=== PATIENT | female | born 1965 | race African-American/Black ===

== ENCOUNTER 2018-09-20 10:30 | Emergency (ER) | payer MEDICAID ==
[~2018-09-20] VITALS: Ht 162.6 cm; Wt 102.0 kg
[2018-09-20 11:12] VITALS: BP 205/127
== END 2018-09-20 11:18 | disposition home or self-care (01) ==
LOC: ER 10:51
DX: B37.3 Candidiasis of vulva and vagina (principal); I10 Essential (primary) hypertension; E11.9 Type 2 diabetes mellitus without complications; Z79.84 Long term (current) use of oral hypoglycemic drugs; F17.210 Nicotine dependence, cigarettes, uncomplicated
CPT/HCPCS: 99283

== ENCOUNTER 2022-07-18 11:00 | Inpatient (IN) | payer MEDICAID ==
[~2022-07-18] VITALS: Ht 162.6 cm; Wt 65.8 kg
[2022-07-18] MEDS ORDERED: SODIUM CHLORIDE 0.9% 1,000 ML IV ONE ×2 (11:15→13:30)
[2022-07-18 11:51] LABS: HEMATOCRIT. 49.7 % (36.0-48.0); MEAN CORPUSCULAR HEMOGLOBIN 26.3 pg (28.0-32.0); MEAN CORPUSCULAR VOLUME 87.4 fL (81.0-99.0); RED BLOOD CELL COUNT 5.69 mill/uL (4.2-5.4); RED CELL DISTRIBUTION WIDTH 16.5 % (11.6-14.6)
[2022-07-18 12:12] LABS: PLATELET ESTIMATE NORMAL
[2022-07-18 12:14] LABS: PLATELET 128 x1000/uL (130-400)
[2022-07-18 13:02] LABS: BG BASE EXCESS -2.4 mmol/L (-2.0-2.0); BG CARBOXYHEMOGLOBIN 4.2 % (0.5-1.5); BG DEOXYHEMOGLOBIN 6.3 % (0.0-5.0); BG HCO3 ACT 22.1 mmol/L (22.0-26.0); BG METHEMOGLOBIN 0.3 % (0.0-1.5); BG OXYGEN SATURATION 93.4 % (92.0-98.5); BG OXYHEMOGLOBIN 89.2 % (94.0-97.0); BG PCO2 37.4 mmHg (35.0-45.0); BG PH 7.389 (7.350-7.450); BG PO2 63.9 mmHg (75.0-100.0); BG SAMPLE SITE RIGHT BRACHIAL; BG TOTAL HEMOGLOBIN 15.7 g/dL (12.0-18.0); BG VENT MODE ROOM AIR
[2022-07-18 13:21] LABS: CHLORIDE 104 mEq/L (98-107)
[2022-07-18 13:22] LABS: PROTHROMBIN TIME 10.9 sec (9.6-11.0)
[2022-07-18 13:31] LABS: BETA HYDROXYBUTYRATE 3.2 mMol/L (0.0-0.3); ETHANOL BLOOD < 10 mg/dL
[2022-07-18] MEDS ORDERED: SODIUM CHL 0.45% + KCL 20MEQ/L 1,000 ML IV SCH (13:45)
[2022-07-18] MEDS ORDERED: INSULIN REGULAR (DRIP) 100 UNITS in SODIUM CHLORIDE 0.9% 99 ML IV ONE (13:45)
[2022-07-18] MEDS ORDERED: INSULIN REGULAR 100U/100ML PMX 100 ML IV ONE (15:15)
[2022-07-18] MEDS ORDERED: HYDRALAZINE 20MG/ML VIAL IV NR (17:15)
[2022-07-18] MEDS ORDERED: DEXTROSE 50% WATER 50ML SYRINGE IV PRN (18:15)
[2022-07-18] MEDS: BLOOD SUGAR DIAGNOSTIC STRIP TEST SCH ×2 (18:15→21:00)
[2022-07-18] MEDS ORDERED: HYDRALAZINE HCL 50MG TABLET PO NR (18:15)
[2022-07-18] MEDS ORDERED: ONDANSETRON HCL 4MG/2ML INJ IV PRN (18:15)
[2022-07-18] MEDS ORDERED: ACETAMINOPHEN 325MG TABLET PO PRN (18:15)
[2022-07-18] MEDS ORDERED: INSULIN GLARGINE 100 UNITS/ML SUBCUT NR (18:15)
[2022-07-18 20:00] VITALS: BP 155/88
[2022-07-18] MEDS: HYDRALAZINE HCL 50MG TABLET PO SCH (21:00)
[2022-07-18] MEDS: INSULIN LISPRO 100 UNITS/ML SUBCUT SCH ×2 (21:00→22:47)
[2022-07-18] MEDS: INSULIN GLARGINE 100 UNITS/ML SUBCUT SCH (22:00)
[2022-07-19] VITALS: BP 152/84
[2022-07-19 04:00] VITALS: BP 148/91
[2022-07-19] MEDS: BLOOD SUGAR DIAGNOSTIC STRIP TEST SCH ×4 (06:48→21:00)
[2022-07-19] MEDS: INSULIN LISPRO 100 UNITS/ML SUBCUT SCH ×6 (06:50→22:32)
[2022-07-19 08:00] VITALS: BP 146/94
[2022-07-19] MEDS: FUROSEMIDE 40MG/4ML VIAL IVP SCH ×2 (08:17→09:00)
[2022-07-19] MEDS: AMLODIPINE 10MG TABLET PO SCH ×2 (08:18→09:00)
[2022-07-19] MEDS: INSULIN GLARGINE 100 UNITS/ML SUBCUT SCH ×2 (09:32→22:31)
[2022-07-19 10:36] LABS: HEMATOCRIT. 44.3 % (36.0-48.0); HEMOGLOBIN. 14.1 g/dL (12.0-16.0); MEAN CORPUSCULAR HEMOGLOBIN 25.9 pg (28.0-32.0); MEAN CORPUSCULAR VOLUME 81.4 fL (81.0-99.0); MEAN PLATELET VOLUME 10.8 fl (7.4-10.4); PLATELET 160 x1000/uL (130-400); RED BLOOD CELL COUNT 5.44 mill/uL (4.2-5.4); RED CELL DISTRIBUTION WIDTH 15.2 % (11.6-14.6)
[2022-07-19 10:58] LABS: CHLORIDE 111 mEq/L (98-107)
[2022-07-19 11:54] VITALS: BP 148/92
[2022-07-19] MEDS ORDERED: POTASSIUM CHLORIDE 20MEQ TABLET SR PO NR (12:00)
[2022-07-19 12:25] LABS: PLATELET ESTIMATE NORMAL
[2022-07-19 16:00] VITALS: BP 140/90
[2022-07-19] MEDS: PIPERACILLIN/TAZOBACTAM 3.375 G in DEXTROSE 5% WATER 50 ML IV SCH (17:31)
[2022-07-19 20:00] VITALS: BP 140/83
[2022-07-19] MEDS: HYDRALAZINE HCL 50MG TABLET PO SCH (22:30)
[2022-07-20] VITALS: BP 128/66
[2022-07-20] MEDS: PIPERACILLIN/TAZOBACTAM 3.375 G in DEXTROSE 5% WATER 50 ML IV SCH ×4 (01:12→21:04)
[2022-07-20 04:00] VITALS: BP 132/69
[2022-07-20 07:19] LABS: BASOPHILS % 0.4 % (0.0-2.0); EOSINOPHILS % 0.2 % (0.0-5.0); HEMATOCRIT. 41.3 % (36.0-48.0); HEMOGLOBIN. 13.2 g/dL (12.0-16.0); LYMPHOCYTES % 10.3 % (20.0-50.0); MEAN CORPUSCULAR HEMOGLOBIN 26.1 pg (28.0-32.0); MEAN CORPUSCULAR VOLUME 81.9 fL (81.0-99.0); MEAN PLATELET VOLUME 11.6 fl (7.4-10.4); MONOCYTES % 6.9 % (2.0-8.0); NEUTROPHILS % 82.2 % (40.0-76.0); PLATELET 134 x1000/uL (130-400); RED BLOOD CELL COUNT 5.05 mill/uL (4.2-5.4); RED CELL DISTRIBUTION WIDTH 14.9 % (11.6-14.6)
[2022-07-20 07:22] LABS: CHLORIDE 105 mEq/L (98-107)
[2022-07-20] MEDS: BLOOD SUGAR DIAGNOSTIC STRIP TEST SCH ×4 (07:40→21:04)
[2022-07-20 07:49] VITALS: BP 132/78
[2022-07-20] MEDS: AMLODIPINE 10MG TABLET PO SCH (08:10)
[2022-07-20] MEDS: FUROSEMIDE 40MG/4ML VIAL IVP SCH (08:10)
[2022-07-20] MEDS: HYDRALAZINE HCL 50MG TABLET PO SCH ×2 (08:10→21:05)
[2022-07-20] MEDS: INSULIN LISPRO 100 UNITS/ML SUBCUT SCH ×7 (08:12→21:06)
[2022-07-20] MEDS: INSULIN GLARGINE 100 UNITS/ML SUBCUT SCH ×2 (10:03→21:05)
[2022-07-20 12:05] VITALS: BP 117/73
[2022-07-20 15:28] VITALS: BP 113/75
[2022-07-20 19:22] LABS: CLARITY URINE CLOUDY (CLEAR); COLOR URINE DARK YELLOW (YELLOW); KETONES URINE TRACE (NEGATIVE); LEUKOCYTE ESTERASE URINE 2+ (NEGATIVE); NITRITE URINE NEGATIVE (NEGATIVE); OCCULT BLOOD URINE NEGATIVE (NEGATIVE); PROTEIN URINE 2+ (NEGATIVE); SPECIFIC GRAVITY URINE 1.026 (1.005-1.030); UROBILINOGEN URINE >8.0 E.U./dL (0.2-1.0)
[2022-07-20 19:33] LABS: *AMPHETAMINES SCREEN URINE NEGATIVE (NEGATIVE); *BARBITURATES SCREEN URINE NEGATIVE (NEGATIVE); *BENZODIAZEPINES SCREEN URINE NEGATIVE (NEGATIVE); *COCAINE SCREEN URINE PRESUMTIVE POSITIVE (NEGATIVE); CANNABINOID URINE SCREEN PRESUMTIVE POSITIVE (NEGATIVE); METHADONE URINE SCREEN NEGATIVE (NEGATIVE); OPIATES URINE SCREEN NEGATIVE (NEGATIVE); PHENCYCLIDINE URINE SCREEN NEGATIVE (NEGATIVE)
[2022-07-20 20:00] VITALS: BP 122/63
[2022-07-21] VITALS: BP 139/79
[2022-07-21 04:00] VITALS: BP 140/87
[2022-07-21] MEDS: PIPERACILLIN/TAZOBACTAM 3.375 G in DEXTROSE 5% WATER 50 ML IV SCH ×3 (06:40→23:24)
[2022-07-21] MEDS: BLOOD SUGAR DIAGNOSTIC STRIP TEST SCH ×4 (06:40→21:37)
[2022-07-21 07:10] LABS: HEMATOCRIT. 39.2 % (36.0-48.0); HEMOGLOBIN. 12.5 g/dL (12.0-16.0); MEAN CORPUSCULAR HEMOGLOBIN 26.1 pg (28.0-32.0); MEAN CORPUSCULAR VOLUME 81.7 fL (81.0-99.0); MEAN PLATELET VOLUME 10.9 fl (7.4-10.4); PLATELET 127 x1000/uL (130-400); RED CELL DISTRIBUTION WIDTH 15.1 % (11.6-14.6)
[2022-07-21 07:42] LABS: CHLORIDE 105 mEq/L (98-107)
[2022-07-21 08:00] VITALS: BP 144/81
[2022-07-21] MEDS: FUROSEMIDE 40MG/4ML VIAL IVP SCH (08:42)
[2022-07-21] MEDS: HYDRALAZINE HCL 50MG TABLET PO SCH ×2 (08:42→20:38)
[2022-07-21] MEDS: AMLODIPINE 10MG TABLET PO SCH (08:43)
[2022-07-21] MEDS: INSULIN LISPRO 100 UNITS/ML SUBCUT SCH ×7 (08:46→21:31)
[2022-07-21] MEDS: INSULIN GLARGINE 100 UNITS/ML SUBCUT SCH ×2 (10:34→21:32)
[2022-07-21 12:00] VITALS: BP 138/79
[2022-07-21 13:45] LABS: PLATELET ESTIMATE SLIGHTLY DECREASED
[2022-07-21] MEDS ORDERED: HYDR-4135 PO (14:26)
[2022-07-21] MEDS ORDERED: AMLO10TA80 PO (14:26)
[2022-07-21] MEDS ORDERED: INSU100I24 SQ (14:26)
[2022-07-21] MEDS ORDERED: FURO-151 MT (14:26)
[2022-07-21] MEDS ORDERED: METF-414 MT (14:26)
[2022-07-21 16:00] VITALS: BP 140/79
[2022-07-21 20:00] VITALS: BP 114/64
[2022-07-22] VITALS: BP 149/63
[2022-07-22 04:00] VITALS: BP 131/76
[2022-07-22 06:44] LABS: HEMATOCRIT. 38.9 % (36.0-48.0); HEMOGLOBIN. 12.5 g/dL (12.0-16.0); MEAN CORPUSCULAR HEMOGLOBIN 26.5 pg (28.0-32.0); MEAN CORPUSCULAR VOLUME 82.7 fL (81.0-99.0); MEAN PLATELET VOLUME 11.1 fl (7.4-10.4); PLATELET 137 x1000/uL (130-400); RED CELL DISTRIBUTION WIDTH 14.8 % (11.6-14.6)
[2022-07-22] MEDS: PIPERACILLIN/TAZOBACTAM 3.375 G in DEXTROSE 5% WATER 50 ML IV SCH ×3 (06:45→22:38)
[2022-07-22] MEDS: INSULIN LISPRO 100 UNITS/ML SUBCUT SCH ×7 (07:20→21:11)
[2022-07-22] MEDS: BLOOD SUGAR DIAGNOSTIC STRIP TEST SCH ×4 (07:56→20:43)
[2022-07-22 08:00] VITALS: BP 149/97
[2022-07-22 08:07] LABS: CHLORIDE 106 mEq/L (98-107)
[2022-07-22] MEDS: AMLODIPINE 10MG TABLET PO SCH (10:30)
[2022-07-22] MEDS: FUROSEMIDE 40MG/4ML VIAL IVP SCH (10:31)
[2022-07-22] MEDS: HYDRALAZINE HCL 50MG TABLET PO SCH ×2 (10:31→20:40)
[2022-07-22] MEDS: INSULIN GLARGINE 100 UNITS/ML SUBCUT SCH ×2 (10:40→22:17)
[2022-07-22 12:00] VITALS: BP 145/72
[2022-07-22 16:00] VITALS: BP 136/70
[2022-07-22 18:40] LABS: PLATELET ESTIMATE NORMAL
[2022-07-22 20:00] VITALS: BP 154/85
[2022-07-23] VITALS: BP 123/60
[2022-07-23 04:00] VITALS: BP 154/74
[2022-07-23] MEDS: INSULIN LISPRO 100 UNITS/ML SUBCUT SCH ×7 (06:41→22:00)
[2022-07-23] MEDS: PIPERACILLIN/TAZOBACTAM 3.375 G in DEXTROSE 5% WATER 50 ML IV SCH ×2 (06:42→21:33)
[2022-07-23] MEDS: BLOOD SUGAR DIAGNOSTIC STRIP TEST SCH ×4 (06:46→21:50)
[2022-07-23 08:00] VITALS: BP 150/90
[2022-07-23] MEDS: HYDRALAZINE HCL 50MG TABLET PO SCH ×2 (10:00→21:33)
[2022-07-23] MEDS: AMLODIPINE 10MG TABLET PO SCH (10:00)
[2022-07-23] MEDS: FUROSEMIDE 40MG/4ML VIAL IVP SCH (10:00)
[2022-07-23] MEDS: INSULIN GLARGINE 100 UNITS/ML SUBCUT SCH ×2 (10:09→22:13)
[2022-07-23 12:00] VITALS: BP 162/85
[2022-07-23 16:00] VITALS: BP 157/70
[2022-07-23 20:00] VITALS: BP 150/73
[2022-07-24] VITALS: BP 132/67
[2022-07-24] MEDS: PIPERACILLIN/TAZOBACTAM 3.375 G in DEXTROSE 5% WATER 50 ML IV SCH (06:46)
[2022-07-24] MEDS: INSULIN LISPRO 100 UNITS/ML SUBCUT SCH ×2 (07:17→08:43)
[2022-07-24] MEDS: BLOOD SUGAR DIAGNOSTIC STRIP TEST SCH (07:19)
[2022-07-24] MEDS: HYDRALAZINE HCL 50MG TABLET PO SCH (08:35)
[2022-07-24] MEDS: AMLODIPINE 10MG TABLET PO SCH (08:35)
[2022-07-24] MEDS: FUROSEMIDE 40MG/4ML VIAL IVP SCH (08:43)
== END 2022-07-24 09:11 | disposition left against medical advice (07) | DRG 720 ==
LOC: ER 12:05 → EDBEDREQTM 13:56 → EDBEDREQ 13:56 → EDBEDREQSVC 13:56 → EDBEDREQTM 14:36 → EDBEDREQ 14:36 → EDBEDREQTM 14:37 → CVICU 16:22 → 7WST 19:38 → 6EST 07-21 17:14
PROVIDERS: ADMIT Internal Medicine; ATTEND Internal Medicine
DX: A41.9 Sepsis, unspecified organism (principal); E11.00 Type 2 diabetes mellitus with hyperosmolarity without nonketotic hyperglycemic-hyperosmolar coma (NKHHC); I50.23 Acute on chronic systolic (congestive) heart failure; E43 Unspecified severe protein-calorie malnutrition; I16.0 Hypertensive urgency; E11.65 Type 2 diabetes mellitus with hyperglycemia; R74.01 Elevation of levels of liver transaminase levels; I11.0 Hypertensive heart disease with heart failure; Z53.29 Procedure and treatment not carried out because of patient's decision for other reasons; Z86.73 Personal history of transient ischemic attack (TIA), and cerebral infarction without residual deficits; Z91.14 Patient's other noncompliance with medication regimen; Z59.02 Unsheltered homelessness; Z79.4 Long term (current) use of insulin; Z68.24 Body mass index [BMI] 24.0-24.9, adult; N39.0 Urinary tract infection, site not specified
CPT/HCPCS: 36415; 36600; 71045; 80048; 80053; 80305; 80320; 81003; 82010; 82375; 82805; 82962; 83605; 83930; 84145; 84484; 85025; 87106; 93005; 93306; 97162; 97166; 99285; C1893; J0360; J1815; J1940; J2543; J3480; J7030; J7050; J7060; G0480